=== PATIENT | male | born 1935 | race Caucasian/White ===

== ENCOUNTER 2017-01-06 17:32 | Emergency (ER) | payer MEDICARE, OTHER ==
[~2017-01-06] VITALS: Ht 180.3 cm; Wt 167.7 kg
[~2017-01-06 17:32] MED LIST: ALBU1.25 INHALATION; ALPR0.254 PO; AMIO200T PO; ASPI81TA3 PO; CARV12.52 PO; FEXO-15 PO; FURO40SO4 PO; LOSA50TA37 PO; MAGN400T39 PO; MULT1CAP33 PO; NITR0.4T SL; OXYC5CAP4 PO; POLY17PO6 PO; SENN-133 PO; SIMV10TA4 PO; SPIR25TA PO; TAMS0.4C98 PO; WARF2.5T82 PO
[2017-01-06 17:38] VITALS: BP 143/94; PULSE 63; RESP 18; O2SAT 95
--- NOTE | 2017-01-06 17:52 | ED.REPORT ---
HPI-General Illness Date of Service Jan 06, 2017 ED Provider: Hamilton Callaway MD Patient is an 82 year old male on warfarin with a history of afib, COPD, HTN, and cancer who presents to the ED complaining of SOB. Associated symptoms include nausea, water retention, and decreased appetite (but he did eat breakfast and lunch). He denies chest pain, recent weight loss, palpitations, or any other symptoms. He had lab work done by Dr. Stein several weeks ago and was told he has "elevated kidney levels" and was advised to come to the ED. He did a routine pacemaker check and they called him back saying they were concerned he has fluid in his lungs. He used albuterol for his SOB this morning with no relief. He has not had any recent medicine changes. Nursing Notes Stated Complaint: SOB,NAUSEA,LOSS OF APPETITE,WATER RETENTION Chief Complaint: General Complaint Nursing Notes Reviewed: Yes ([place] not reconciled - EMR indicates Warfarin use) Allergies: Coded Allergies: No Known Allergies (Verified Allergy, Unknown, 10/10/15) Scheduled Amiodarone (Amiodarone) 200 Mg Tablet 200 MG PO DAILY Aspirin Chew (Aspirin Chew) 81 Mg Tablet 81 MG PO DAILY Carvedilol (Carvedilol) 12.5 Mg Tablet 12.5 MG PO BID Fexofenadine (Dana Allergy) 60 Mg Tablet 60 MG PO DAILY Furosemide (Furosemide) 40 Mg/4 Ml Solution 80 MG PO DAILY Losartan Potassium (Losartan Potassium) 50 Mg Tablet 50 MG PO DAILY Magnesium Oxide (Magnesium) 400 Mg Tablet 400 MG PO DAILY Polyethylene Glycol 3350 (Miralax) 17 Gm Powd.pack 17 GM PO BID Sennosides (Senna) 8.6 Mg Tablet 8.6 MG PO HS Simvastatin (Simvastatin) 10 Mg Tablet 10 MG PO HS Spironolactone (Aldactone) 25 Mg Tablet 12.5 MG PO DAILY Tamsulosin (Flomax) 0.4 Mg Capsule 0.4 MG PO DAILY Warfarin Sodium (Warfarin Sodium) 2.5 Mg Tablet 2.5 MG PO , , , , Sa Scheduled PRN Albuterol Neb Soln (Albuterol Neb Soln) 1.25 Mg/3 Ml Vial.neb 1.25 MG INHALATION Q4H PRN PRN For Wheezing Alprazolam (Alprazolam) 0.25 Mg Tablet 0.25 MG PO PRN PRN PRN For Anxiety Nitroglycerin SL (Nitrostat) 0.4 Mg Tablet 0.4 MG SL Q5MIN PRN PRN For Chest Pain oxyCODONE (oxyCODONE) 5 Mg Capsule 5 MG PO Q6HRS PRN PRN PRN For Pain Miscellaneous Medications Multivitamin (Multivitamins) 1 Each Capsule 1 EACH PO General Time Seen by MD: 17:47 Chief Complaint Breathing problem Hx Obtained From: Patient, Other family... Arrived By: Walk-in Past Medical History Past Medical History Notes: [facility] [place]: Dr. Michael Dan FULL CODE STATUS Past Medical History Hx of ventricular tachycardia and non ischemic cardiomyopathy. 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 No evidence for relapse-followed by Dr. Stein Mild renal insufficiency, creatinine 1.5-1.6 History of atrial fibrillation- on warfarin Sleep apnea, on CPAP Gout Dyslipidemia History of ventricular tachycardia cardiac arrest, now status post AICD Reports: COPD, Congestive heart failure, Hypertension Reports: Atrial fibrillation Past Surgical History Joint replacement [employer] AICD Defibrillator implanted August 2012 Reports: Pacemaker insertion Smoking History Former Smoker Social History Other Social History: Good social support Review of Systems + decreased appetite Full Review of Systems Constitutional: Denies: Recent wt loss Respiratory: Reports: Shortness of breath Cardiovascular: Denies: Chest pain, Palpitations GI: Reports: Nausea Complete sys rev & neg: except as marked. Physical Exam Vital Signs Vital Signs Date Time Temp Pulse Resp B/P Pulse Ox O2 Delivery O2 Flow Rate FiO2 01/06/17 21:27 60 14 122/64 98 Room Air 01/06/17 19:51 36.8 65 15 116/60 98 Room Air 01/06/17 17:38 36.2 63 18 143/94 95 Initial VS: Reviewed, Vital signs normal Head / Eyes: Atraumatic, Normocephalic Neck: Full range of motion Abdomen / GI: Soft, Non-tender Skin: Warm, Dry Neurologic: Alert, Oriented, Nonfocal Psychiatric: Mood/affect normal, Behavior normal, Normal thought content General/Constitutional: Awake, Alert Appearance / Presentation: Positive: Obese Respiratory / Chest: Breath sounds NL, Breath sounds = bilat, No respiratory distress Cardiovascular: Heart rate NL, No murmurs Chronic venous-stasis changes. Chronic 2+ edema is unchanged. Interpretation & Diagnostics Lab Results Interpretation Result Diagram: 01/06/170 01/06/170 Test 01/06/17 18:20 White Blood Count 6.3th/mm3 (3.8-10.1) Red Blood Count 4.20mil/mm3 (4.40-5.80) Hemoglobin 13.8g/dL (13.8-17.2) Hematocrit 41.8% (41.0-50.0) Mean Corpuscular Volume 99.5fL (81-100) Mean Corpuscular Hemoglobin 32.9pg (27.0-35.0) Mean Corpuscular Hemoglobin Concent 33.0% (32.0-37.0) Red Cell Distribution Width 14.9% (12.3-15.4) Platelet Count 171bil/L (150-400) Neutrophils (%) (Auto) 51.6% (40-74) Lymphocytes (%) (Auto) 30.6% (14-46) Monocytes (%) (Auto) 14.4% (4-12) Eosinophils (%) (Auto) 2.4% (0-5) Basophils (%) (Auto) 0.5% (0-3) Prothrombin Time 21.0sec (8.1-12.5) Prothromb Time International Ratio 1.94ratio Sodium Level 136mEq/L (134-144) Potassium Level 4.6mEq/L (3.5-5.2) Chloride Level 97mEq/L (97-108) Carbon Dioxide Level 26mmol/L (18-29) Blood Urea Nitrogen 40mg/dL (8-27) Creatinine 1.53mg/dL (0.76-1.27) Estimat Glomerular Filtration Rate 47mL/min (>59) Glucose Level 96mg/dL (60-99) Calcium Level 8.8mg/dL (8.5-10.1) Magnesium Level 2.3mg/dL (1.6-2.6) Total Bilirubin 0.8mg/dL (0.0-1.2) Aspartate Amino Transf (AST/SGOT) 45U/L (0-50) Alanine Aminotransferase (ALT/SGPT) 31U/L (0-44) Alkaline Phosphatase 93U/L (25-160) Troponin T 0.018ug/L (0.0-0.011) Pro-B-Type Natriuretic Peptide 709.6pg/mL (0-486) Total Protein 6.4g/dL (6.4-8.4) Albumin 3.3g/dL (3.4-5.0) Hold Goff Top Tube Received (Received) Lab Results Interpretation: CBC normal CMP mild renal insufficiency, not appreciably changed Near therapeutic INR ECG Interpretation ECG Interpretation: ventricular-paced complexes rate 60 Time: 19:33 Interpreted by: ED physician X-Ray Chest Interpretation Chest Xray Interpretation: IMPRESSION: Changes most consistent with COPD. Chronic increased markings are present at the lung bases but acute infiltrates or not appreciated on these films. Port-A-Cath catheter with narrowing. Consider removing this as it could eventually breaking this point. Dictated by: Feng Peterson M.D. on 01/06/2017 at 19:37 Approved by: Feng Peterson M.D. on 01/06/2017 at 19:40 View: AP & lat Interpretation / Wet Read by: Interpret - Radiologist Re-Eval/Medical Decision Med Decision/Clinical Course This is an 82-year-old male who presents concern that he is developing congestive heart failure. The patient has a [employer] pacemaker, and gets monthly surveillance data that he sense to [employer], and received a phone call indicating a concern that he might be developing "fluid on the lungs", and requested he get follow-up, they weigh himself daily. He noted he had some recent renal insufficiency noted on labs as well, and became increasingly concerned so was brought in for further evaluation. However clinically he denies any sense of symptoms-he denies any new dyspnea, he has chronic post 2 pitting edema of the legs but he states that that is unchanged, he has marked obesity, but states he has not noted any weight gain. He has no orthopnea, and he has no actual complaints. On exam the patient is is morbidly obese, he has the edema, but I do not push and he reveals clinically, he has no JVD, he does not appear any visible distress and is suctioning adequately. A chest x-ray was obtained and was negative for clear acute process. Labs notable for renal insufficiency, although slightly improved compared to November's numbers. Troponin is negative and BNP is only marginally elevated. He has a paced rhythm. Additionally I got from them was a concern that he got a cold call from [employer] indicating might have fluid on the lungs, but I difficulties interpreting what that meant. I attempted to contact a [employer], but they indicated they could not find or identify records of this out of exactly been medicated to the patient. I did discuss the case with the v belt coverer indicates that the [employer] pacemaker's monitor impedance, and if they measure increased impeding answer concerned about presence of congestive heart failure- making this likely explanation. However with the patient doing quite well at this time, with no clinical symptoms, with only findings of chronic unchanged edema in the legs, a negative radiograph and fairly unremarkable labs-I am not finding any indication that admission is warranted. The patient did receive a single dose of Lasix here, but will continue his current medication and current Lasix dosing, but is to call the cardiology office tomorrow to schedule follow-up over the next week to 10 days. He was advised that he should continue to monitor his weights daily, with a specific indication of treating concern of a 5 pound swing within a couple of days. Routine precautions reviewed. Patient is discharged in good condition. Source of Hx: Old records Time of Eval: 20:40 Re-Evaluation/Progress Note: Discussed plan for discharge with cardiology follow up. Patient understands and agrees with plan. All questions addressed at this time. Consultation #1: Call Returned at: 18:59 Note: Contacted [employer] to obtain information about the call placed to patient about possible fluid in his lungs. [employer] reports that they have no way to access what information was exchanged with the patient at this time. Consultation #2: Referral / Consult Name: Gabby Smith MD Consulted With: Cardiology Call Returned at: 20:14 Note: Patient should follow up in clinic. He is safe to discharge. Pacemaker can detect impedance and early CHF which is the probable cause of the call the patient received. Counseled Regarding: Diagnosis, Lab results, Need for follow-up, When/why to return to ED Discharge & Departure Primary Impression: Congestive heart failure (CHF) Congestive heart failure type: unspecified congestive heart failure type Congestive heart failure chronicity: acute on chronic Qualified Code: I50.9 - Heart failure, unspecified Additional Impressions: Anticoagulated on Coumadin Renal insufficiency Disposition: Home Discharge Condition All VS Reviewed: Yes Condition: Stable Additional Instructions: 1. By report, year pacemaker monitoring suggested an increased impedance, which can be a sign of some developing congestive heart failure. 2. However we did not find any evidence of clinical call or radiographic acute heart failure on your evaluation in the emergency department. 3. Kidney function is still marginally abnormal-but is actually improved compared to the values in November. 4. I have talked to cardiology and they would likely to call the clinic to schedule an appointment. Continue your current medications as is for now. 5. Continue to weigh yourself daily (a swing of 5 pounds over a few days is concerning for fluid accumulation and would prompt a medication change) 6. Return to the emergency department if new or worsening symptoms. Referrals: Gianluca Laugerre MD (PCP) Scribe Attestation Portions of this note were transcribed by Randa Jhaveri. I, Dr. Callaway personally performed the history, physical exam and medical decision-making; I reviewed and confirmed the accuracy of the information in the transcribed note. Signed by: Randa Jhaveri 01/06/[id number] copies to: Gianluca Laguerre MD, Matthew F MD Jan 06, 2017 17:52 RANDA JHAVERI Jan 06, 2017 19:01
[2017-01-06 18:36] LABS: BASOPHILS % (AUTO) 0.5 % (0-3); EOSINOPHILS % (AUTO) 2.4 % (0-5); MONOCYTES % (AUTO) 14.4 % (4-12); Mean Corpuscular Hemoglobin 32.9 pg (27.0-35.0); Mean Corpuscular Volume 99.5 fL (81-100); NEUTROPHILS % (AUTO) 51.6 % (40-74); Platelet Count 171 bil/L (150-400)
[2017-01-06 18:50] LABS: INR 1.94 ratio
[2017-01-06 18:55] LABS: TROPONIN T 0.018 ug/L (0.0-0.011)
[2017-01-06 19:06] LABS: Magnesium 2.3 mg/dL (1.6-2.6)
--- NOTE | 2017-01-06 19:41 | DRSVH ---
PROCEDURE: X-RAY CHEST, TWO VIEWS ([id number]) INDICATIONS: SHORTNESS OF BREATH TECHNIQUE: 2 views of the chest were acquired. COMPARISON: [facility], CR, XR CHEST 1VW (PORTABLE), 08/09/2016, 8:53. [facility], CR, XR CHEST 1VW (PORTABLE), 08/16/2016, 3:08. FINDINGS: Surgical changes and devices: There is a right sided single lead pacer defibrillator into the right v entricle. There is a Port-A-Cath catheter from a left subclavian approach. At the site of this cathet er processes beneath the there is a narrowing of the catheter. This is indicative of weakening of the catheter at this site and a ventral breakage of the catheter is not removed. Lungs and pleura: No pl There are chronic markings at the lung bases that appear similar on previous x-rays.eural effusions or pneumothorax. Lungs are clear of acute infiltrates.. Mediastinum: Mediastinal contours are normal. Heart size is normal. Bones and chest wall: No suspicious bony abnormalities. Soft tissues appear unremarkable. IMPRESSION: Changes most consistent with COPD. Chronic increased markings are present at the lung bas es but acute infiltrates or not appreciated on these films. Port-A-Cath catheter with narrowing. Consider removing this as it could eventually breaking this poin t. Dictated by: Feng Peterson M.D. on 01/06/2017 at 19:37 Approved by: Feng Peterson M.D. on 01/06/2017 at 19:40
[2017-01-06 19:51] VITALS: BP 116/60; PULSE 65; RESP 15; O2SAT 98
[2017-01-06] MEDS ORDERED: Furosemide 10 mg/mL 4 mL Inj IVPUSH ONE (20:35)
[2017-01-06] MEDS ORDERED: HepLOK Flush 100 unit/mL 5 mL Inj ONE (21:15)
[2017-01-06 21:27] VITALS: BP 122/64; PULSE 60; RESP 14; O2SAT 98
[2017-04-04] MEDS ORDERED: FURO40TA4 PO (09:19)
== END 2017-01-06 21:30 | disposition home or self-care (01) ==
LOC: SED 17:32
DX: I11.0 Hypertensive heart disease with heart failure (principal); I50.9 Heart failure, unspecified; N28.9 Disorder of kidney and ureter, unspecified; Z85.038 Personal history of other malignant neoplasm of large intestine; Z87.891 Personal history of nicotine dependence; Z95.0 Presence of cardiac pacemaker; Z79.82 Long term (current) use of aspirin; Z79.01 Long term (current) use of anticoagulants
CPT/HCPCS: 36415; 71020; 80053; 83735; 83880; 84484; 85025; 85610; 93005; 96374; 99285; J1642; J1940